=== PATIENT | female | born 1995 | race Caucasian/White ===

== ENCOUNTER 2019-08-02 11:07 | Emergency (ER) | payer SELFPAY ==
--- NOTE | ~2019-08-02 | CT_ITS ---
EXAMINATION: CT abdomen pelvis wo con EXAM DATE: 08/02/2019 13:20 INDICATION: Right flank pain, hematuria. TECHNIQUE: Spiral CT of the abdomen and pelvis was performed without contrast. Axial, coronal and sag ittal images were reviewed. The dose-length product (DLP) for this examination was 597.88 mGy-cm. T he exposure was tailored according to patient size (auto mA exposure control), and iterative reconstr uction (ASIR) was used as additional dose reduction technique. There is no prior study for compariso n. FINDINGS: There is right pelvic 5 mm calcification suspected most likely phlebolith given position a nd absence of hydroureteronephrosis, perinephric fat stranding. However, there are bilateral kidney s tones with 5 mm right inferior and additional punctate right mid calyceal stone. On the left there ar e 6 kidney stones, measuring up to 5 mm. The uterus and ovaries are unremarkable, no adnexal mass. T he bladder is unremarkable. The liver, spleen, adrenal glands and pancreas are unremarkable. Gallbladder is unremarkable. No bi liary obstruction. There is no retroperitoneal or pelvic lymphadenopathy. The appendix is not positively visualized. There is no pericecal inflammatory change to suggest appe ndicitis. The stomach and small bowel are unremarkable. There is expected amount of colonic stool. No free intraperitoneal gas. The heart is normal in size. There are no pericardial or pleural e ffusions. The lung bases are unremarkable. The bones are normal. IMPRESSION: 1. Bilateral nephrolithiasis up to 5 mm in size. 2. Right pelvic 5 mm calcification most likely phlebolith given absence of obstructive nephropathy. Reviewed, dictated and finalized at location A. IMPRESSION: 1. Bilateral nephrolithiasis up to 5 mm in size. 2. Right pelvic 5 mm calcification most likely phlebolith given absence of obs tructive nephropathy.
[2019-08-02 11:15] VITALS: BP 107/90; PULSE 89; RESP 16; TEMP 36.3; O2SAT 100
[2019-08-02] MEDS: ACETAMINOPHEN 500 MG TABLET 1000 MG PO (11:37)
--- NOTE | 2019-08-02 11:41 | ED.ABDPAIN ---
HPI - Abdominal Pain General Chief Complaint: Abdominal Pain Stated Complaint: ABD PAIN Time Seen by Provider: 08/02/19 11:11 Source: patient Mode of arrival: ambulatory Limitations: no limitations History of Present Illness HPI narrative: Patient is a 24-year-old female who presents for evaluation of abdominal pain. Patient is from [facility], history is obtained with use of a coil cutter. Patient reporting 3 days of worsening right-sided abdominal pain, burning with urination. Patient reports abdominal pain is dull, aching in nature. She reports mild back pain in the center of her back. No fever, nausea or vomiting. No chest pain, cough or shortness of breath. No vaginal discharge or vaginal bleeding. Patient states she has not had a menstrual period for 1 year. She has a history of 3 sections. She has a history of appendectomy. No other medical history. Patient is visiting family from [place] where she lives permanently. Related Data Allergies Allergy/AdvReac Type Severity Reaction Status Date / Time No Known Allergies Allergy Verified 08/02/19 11:18 Review of Systems Review of Systems: Narrative: CONSTITUTIONAL: Denies fever, chills ENT: Denies rhinorrhea, congestion CARDIOVASCULAR: Denies chest pain RESPIRATORY: Denies cough or dyspnea. GASTROINTESTINAL: Reports abdominal pain GENITOURINARY: Reports dysuria SKIN: Denies rash or itching. MUSCULOSKELETAL: Reports right-sided back pain NEUROLOGIC: Denies headache, numbness, or weakness. [facility] Past Medical History Medical History (Updated 08/02/19 @ 14:26 by Rachelle Avila MD) No pertinent past medical history Surgical History Surgical History (Updated 08/02/19 @ 11:43 by Rachelle Avila MD) H/O section History of appendectomy Social History Social History (Updated 08/02/19 @ 11:43 by Rachelle Avila MD) Smoking status: Never smoker Alcohol intake: never Substance use: never Gender identity (if verbalized by the patient): Female Exam Narrative: Exam Narrative: GENERAL: Awake, alert, conversant HEAD: Normocephalic, atraumatic. EYES: PERRLA and EOMI. ENT: Nares clear, no rhinorrhea or epistaxis. Mucous membranes moist. NECK: Supple. CHEST: No respiratory distress, breathing even and non labored HEART: Regular rate, sinus rhythm ABDOMEN:Non distended, mild tenderness to palpation of the right lower quadrant, periumbilical area, no guarding, mild right flank tenderness EXTREMITIES: Normal range of motion. No edema. SKIN: Warm, dry, no rash. NEURO:No focal deficits. Alert and oriented x3 Course Vital Signs Vital signs: Vital Signs Temperature 36.3 C L 08/02/19 11:15 Pulse Rate 89 08/02/19 11:15 Respiratory Rate 16 08/02/19 11:15 Blood Pressure 107/90 08/02/19 11:15 Pulse Oximetry 100 08/02/19 11:15 Temperature 36.3 C L 08/02/19 13:11 Pulse Rate 89 08/02/19 11:15 Respiratory Rate 16 08/02/19 11:15 Blood Pressure 107/90 08/02/19 11:15 Pulse Oximetry 100 08/02/19 11:15 MDM - Abdominal Pain MDM Narrative Medical decision making narrative: Patient presented for evaluation of abdominal pain and flank pain. Patient's abdomen is soft without significant pain or signs of surgical abdomen on serial exams. Lab and imaging evaluations are reviewed and patient is felt to be a reasonable candidate for outpatient management. Patient does have some blood present in her urine, given dysuria, will go ahead and treat for UTI as patient is symptomatic. No sign of appendicitis. She does have bilateral renal stones, I did explain at this point I do not think that would be causing her pain. Patient without vaginal discharge, vaginal bleeding. She is not . Renal stones would also contribute to the blood present in the urine. As per the patient not menstruating over the past year, I explained that she would be best to follow-up with her family physician and [employer] back in [place] as she
[2019-08-02 11:45] LABS: Basophils Absolute Auto 0.1 K/mm3 (0.0-0.1); Basophils Percent Auto 0.9 % (0.2-1.2); Eosinophils Absolute Auto 0.1 K/mm3 (0-0.3); Hematocrit 40.7 % (37.0-47.0); Hemoglobin 13.7 g/dL (12.0-15.0); Immature Granulocyte Absolute 0.02 K/mm3 (0.00-0.031); Immature Granulocyte Percent A 0.3 % (0-0.5); Lymphocytes Absolute Auto 3.17 K/mm3 (0.9-3.2); Lymphocytes Percent Auto 45.6 % (18.3-44.2); Mean Corpuscular HGB Conc 33.7 g/dl (32-36); Mean Corpuscular Hemoglobin 29.1 pg (26-34); Mean Corpuscular Volume 86.4 fl (80-100); Mean Platelet Volume 9.6 fl (7.4-10.4); Monocytes Absolute Auto 0.7 K/mm3 (0.1-0.6); Monocytes Percent Auto 9.6 % (2.6-8.5); Neutrophils Percent Auto 42.6 % (45.5-73.1); Platelet Count Result 271 k/mm3 (150-375); Red Blood Count 4.71 M/mm3 (4.2-5.4); Red Cell Distribution Width 12.5 % (11.5-14.5)
[2019-08-02 11:51] LABS: Add Urine Microscopic? YES; Appearance Urine Clear (Clear); Bacteria Urine Trace /hpf; Bilirubin Urine Negative (Negative); Blood Urine 1+ (Negative); Color Urine Yellow (Yellow); Glucose Urine UA Negative (Negative); Ketones Urine Negative (Negative); Leukocyte Esterase Ur Negative LEU/UL (Negative); Mucus Urine Few /lpf; Nitrate Urine Negative (Negative); Protein Urine Negative (Negative); RBC Urine 21-50 /hpf (0-2); Squamous Epithelial Cell Urine Moderate /hpf (Few)
[2019-08-02 11:57] LABS: Alanine Aminotransferase 42 U/L (4-35); Albumin Level 4.7 g/dL (3.5-5.1); Alkaline Phosphatase 90 U/L (38-126); Aspartate Amino Transferase 32 U/L (14-36); Bilirubin,Total 0.7 mg/dL (0.2-1.3); Blood Urea Nitrogen 13 mg/dL (7-17); Calcium 9.5 mg/dL (8.4-10.2); Carbon Dioxide 29 mmol/L (22-30); Chloride 104 mmol/L (98-107); Estimated CRCL calculation 118 ml/min; Estimated Glomerular Filt Rate > 60; Glucose 96 mg/dL (65-105); Lipase 56 U/L (23-300); Potassium 4.5 mmol/L (3.4-5.0); Sodium 138 mmol/L (137-145)
[2019-08-02 13:11] VITALS: TEMP 36.3
[2019-08-02 14:38] VITALS: BP 110/84; PULSE 80; RESP 18; O2SAT 100
== END 2019-08-02 14:39 | disposition home or self-care (01) ==
PROVIDERS: Emergency Provider Emergency Medicine
DX: R31.29 Other microscopic hematuria (principal); R10.31 Right lower quadrant pain; N20.0 Calculus of kidney
CPT/HCPCS: 36415; 74176; 80053; 81001; 81025; 83690; 85025; 99284; A9270